=== PATIENT | female | born 1960 | race Caucasian/White ===

== ENCOUNTER 2023-12-30 12:37 | Emergency (ER) | payer OTHER ==
[~2023-12-30] VITALS: Ht 152.4 cm; Wt 57.7 kg
[2023-12-30] MEDS ORDERED: OMEPRAZOLE40 MG PO ×2 (12:52→14:55)
[2023-12-30] MEDS ORDERED: ZYRTEC10 M3 (12:52)
[2023-12-30] MEDS ORDERED: IOPAMIDOL 370 MG/ML 100 ML INFUS..BTL INJ ONE (13:23)
[2023-12-30] MEDS: DONNATAL/LIDOCAINE/MAALOX 30 ML SUSP PO ONE (13:29)
[2023-12-30] MEDS ORDERED: MAGNESIUM/ALUMINUM/SIMETHICONE 30 ML UDC ONE (13:32)
[2023-12-30] MEDS ORDERED: BELLADONNA ALK/PHENOBARBITAL 5 ML UDC ONE (13:32)
[2023-12-30] MEDS ORDERED: LIDOCAINE VISC 2% SOLN 15 ML UDC ONE (13:33)
[2023-12-30] MEDS ORDERED: FAMOTIDINE 20 MG/2 ML VIAL IV ONE (13:33)
[2023-12-30] MEDS: FAMOTIDINE 20 MG/2 ML VIAL IV STA (13:39)
[2023-12-30] MEDS: HYDROCODONE/APAP 5MG-325MG TAB PO ONE (14:02)
[2023-12-30] MEDS: ONDANSETRON HCL INJ 2MG/ML 2ML 2 MG/ML VIAL IV STA (14:02)
[2023-12-30] MEDS ORDERED: ONDANSETRON HCL INJ 2MG/ML 2ML 2 MG/ML VIAL ONE (14:04)
[2023-12-30] MEDS ORDERED: HYDROCODONE/APAP 5MG-325MG TAB ONE (14:05)
[2023-12-30 15:14] VITALS: O2SAT 97
== END 2023-12-30 15:14 | disposition home or self-care (01) ==
LOC: FSED 12:41
DX: R10.13 Epigastric pain (principal); K29.80 Duodenitis without bleeding; K21.9 Gastro-esophageal reflux disease without esophagitis; R94.31 Abnormal electrocardiogram [ECG] [EKG]; F17.210 Nicotine dependence, cigarettes, uncomplicated
CPT/HCPCS: 74177; 80053; 82553; 84484; 85025; 93005; 96374; 96375; 99284; J2405; Q9967

== ENCOUNTER 2024-02-17 22:31 | Inpatient (IN) | payer OTHER ==
[~2024-02-17] VITALS: Ht 152.4 cm; Wt 56.7 kg
[~2024-02-17 22:31] MED LIST: FLONASE ALLERG9.9 ML INH; LEVOTHYROXINE75 MCG PO; MULTI-VITAMIN1 EACH PO; OMEPRAZOLE40 MG PO; SERTRALINE HCL50 MG PO; ZYRTEC10 M3
[2024-02-17 22:39] VITALS: PULSE 76; RESP 18; TEMP 96.9
[2024-02-17] MEDS: SODIUM CHLORIDE 0.9% 1000ML 2,000 ML IV STA (22:49)
[2024-02-17 23:10] LABS: BASOPHILS % 0.3 % (0.0-1.0); EOSINOPHILS # (AUTO) 0.1 (0.0-0.4); EOSINOPHILS % 1.6 % (0.0-6.0); HEMATOCRIT 43.9 % (34.2-44.1); HEMOGLOBIN 14.6 g/dL (12.0-16.0); LYMPHOCYTES # (AUTO) 2.4 (1.0-3.2); MEAN CORPUSCULAR HEMOGLOBIN 31.3 pg (28-32); MEAN CORPUSCULAR HGB CONC 33.3 g/dL (31-35); MEAN CORPUSCULAR VOLUME 94.2 fL (81-99); MONOCYTES # (AUTO) 0.7 (0.2-0.8); MONOCYTES % 7.8 % (4.4-11.3); NEUTROPHILS # (AUTO) 5.3 (2.1-6.9); NEUTROPHILS % 61.3 % (38.7-80.0); PLATELET COUNT 242 x10e3/uL (140-360); RED BLOOD COUNT 4.66 x10e6/uL (3.6-5.1); RED CELL DISTRIBUTION WIDTH 12.1 % (11.7-14.4); WHITE BLOOD COUNT 8.58 x10e3/uL (4.8-10.8)
[2024-02-17 23:24] LABS: LIPASE 53 U/L (8-78)
[2024-02-17 23:25] LABS: ALANINE AMINOTRANSFERASE 10 IU/L (0-55); ALBUMIN 3.9 g/dL (3.5-5.0); ALBUMIN/GLOBULIN RATIO 1.1 (0.8-2.0); ALKALINE PHOSPHATASE 71 IU/L (40-150); ANION GAP 15.9 mmol/L (8-16); BILIRUBIN,TOTAL 0.3 mg/dL (0.2-1.2); BLOOD UREA NITROGEN 17 mg/dL (7-26); BUN/CREATININE RATIO 20 (6-25); CALCIUM 9.4 mg/dL (8.4-10.2); CARBON DIOXIDE 24 mmol/L (22-29); CHLORIDE 107 mmol/L (98-107); CREATINE KINASE 60 IU/L (29-168); CREATININE, SERUM 0.87 mg/dL (0.57-1.11); EST GLOMERULAR FILTRATION RATE 75 ML/MIN (>=60); GLUCOSE 87 mg/dL (74-118); POTASSIUM 3.9 mmol/L (3.5-5.1); SODIUM 143 mmol/L (136-145); TOTAL PROTEIN 7.6 g/dL (6.5-8.1)
[2024-02-17 23:35] LABS: TROPONIN I < 0.001 ng/mL (0-0.300)
[2024-02-17 23:36] LABS: ETHANOL < 10.0 mg/dL (0.0-10.0)
[2024-02-17] MEDS ORDERED: IOPAMIDOL 370 MG/ML 100 ML INFUS..BTL INJ ONE (23:52)
[2024-02-18] VITALS (9 sets, daily range): BP systolic 93–145; BP diastolic 58–85; PULSE 69–85; RESP 16–18; TEMP 97.5–98.1; O2SAT 95–100
[2024-02-18] MEDS ORDERED: ONDANSETRON HCL INJ 2MG/ML 2ML 2 MG/ML VIAL IV PRN (01:30)
[2024-02-18] MEDS: SODIUM CHLORIDE 0.9% 1000ML 1,000 ML IV SCH (02:54)
[2024-02-18 06:35] LABS: CREATINE KINASE 53 IU/L (29-168)
[2024-02-18 06:44] LABS: TROPONIN I < 0.001 ng/mL (0-0.300)
[2024-02-18] MEDS ORDERED: ALBUTEROL/IPRATROPIUM 3 ML NEB NEB PRN (10:45)
[2024-02-18] MEDS ORDERED: METOPROLOL TARTRATE INJ 1 MG/ML VIAL IV PRN (10:45)
[2024-02-18] MEDS ORDERED: MELATONIN 3 MG TAB PO PRN (10:45)
[2024-02-18] MEDS ORDERED: PROPOFOL IV EMULSION 10 MG/ML 20 ML VIAL ONE (11:56)
[2024-02-18] MEDS ORDERED: GLYCOPYRROLATE INJ 0.2 MG/ML VIAL ONE (11:56)
[2024-02-18] MEDS ORDERED: PROPOFOL IV EMULSION 10 MG/ML 50 ML VIAL IV ONE (11:56)
[2024-02-18] MEDS ORDERED: EPHEDRINE SULFATE INJ 50 MG/ML VIAL ONE (11:56)
[2024-02-18] MEDS ORDERED: LIDOCAINE HCL 2% LOCAL INJ 5 ML SDV VIAL INJ ONE (11:56)
[2024-02-18] MEDS ORDERED: ONDANSETRON HCL INJ 2MG/ML 2ML 2 MG/ML VIAL ONE (14:00)
[2024-02-18 14:58] LABS: CREATINE KINASE 144 IU/L (29-168)
[2024-02-18 15:05] LABS: TROPONIN I < 0.001 ng/mL (0-0.300)
[2024-02-18] MEDS: ENOXAPARIN SOD INJ 40 MG/0.4 ML SYR SC SCH (17:21)
[2024-02-19] VITALS (10 sets, daily range): BP systolic 99–127; BP diastolic 60–76; PULSE 68–91; RESP 16–18; TEMP 98.1–100.5; O2SAT 95–98
[2024-02-19] MEDS: ACETAMINOPHEN 325 MG TAB PO PRN (05:26)
[2024-02-19 05:58] LABS: BASOPHILS % 0.1 % (0.0-1.0); EOSINOPHILS % 0.2 % (0.0-6.0); HEMATOCRIT 34.1 % (34.2-44.1); HEMOGLOBIN 11.2 g/dL (12.0-16.0); LYMPHOCYTES # (AUTO) 1.1 (1.0-3.2); LYMPHOCYTES % 10.5 % (18.0-39.1); MEAN CORPUSCULAR HEMOGLOBIN 31.3 pg (28-32); MEAN CORPUSCULAR HGB CONC 32.8 g/dL (31-35); MEAN CORPUSCULAR VOLUME 95.3 fL (81-99); MONOCYTES # (AUTO) 0.6 (0.2-0.8); MONOCYTES % 6.1 % (4.4-11.3); NEUTROPHILS # (AUTO) 8.3 (2.1-6.9); NEUTROPHILS % 82.6 % (38.7-80.0); PLATELET COUNT 157 x10e3/uL (140-360); RED BLOOD COUNT 3.58 x10e6/uL (3.6-5.1); WHITE BLOOD COUNT 10.04 x10e3/uL (4.8-10.8)
[2024-02-19 06:23] LABS: ALBUMIN 2.7 g/dL (3.5-5.0); ALBUMIN/GLOBULIN RATIO 1.1 (0.8-2.0); ANION GAP 12.3 mmol/L (8-16); BILIRUBIN,TOTAL 0.4 mg/dL (0.2-1.2); CALCIUM 7.6 mg/dL (8.4-10.2); CREATININE, SERUM 0.83 mg/dL (0.57-1.11); TOTAL PROTEIN 5.2 g/dL (6.5-8.1)
[2024-02-19 06:25] LABS: POTASSIUM 3.3 mmol/L (3.5-5.1)
[2024-02-19 07:44] LABS: CLARITY,URINE CLEAR (CLEAR); COLOR,URINE YELLOW (YELLOW); GLUCOSE, URINE NEGATIVE (NEGATIVE); KETONES,URINE NEGATIVE (NEGATIVE); LEUKOCYTE ESTERASE ,URINE NEGATIVE (NEGATIVE); NITRITE,URINE NEGATIVE (NEGATIVE); PH,URINE 5.5 (5 - 7); PROTEIN,URINE DIPSTICK NEGATIVE (NEGATIVE)
[2024-02-19 07:45] LABS: AMPHETAMINES SCREEN,URINE POSITIVE (NEGATIVE); BENZODIAZEPINES SCREEN,URINE NEGATIVE (NEGATIVE); BILIRUBIN,URINE NEGATIVE (NEGATIVE); CANNABINOIDS SCREEN,URINE NEGATIVE (NEGATIVE); METHADONE SCREEN, URINE NEGATIVE (NEGATIVE); OPIATES SCREEN,URINE NEGATIVE (NEGATIVE); PHENCYCLIDINE SCREEN,URINE NEGATIVE (NEGATIVE); URINE UROBILINOGEN 0.2 mg/dL (0.2 - 1)
[2024-02-19 07:57] LABS: BACTERIA,URINE FEW /HPF; EPITHELIAL CELLS,URINE FEW /LPF; WBC,URINE (MAN) 0-5 /HPF (0-5)
[2024-02-19] MEDS ORDERED: PANTOPRAZOLE SOD 40 MG TABEC PO SCH (09:00)
[2024-02-19] MEDS: FLUTICASONE PROPIONATE NASAL SPRAY NS SCH (09:35)
[2024-02-19] MEDS: LEVOTHYROXINE SODIUM 75 MCG TAB PO SCH (09:35)
[2024-02-19] MEDS: SERTRALINE HCL 50 MG TAB PO SCH (09:35)
[2024-02-19] MEDS: ONDANSETRON HCL INJ 2MG/ML 2ML 2 MG/ML VIAL IV PRN (09:37)
[2024-02-19] MEDS: Morphine 4mg INJECTION 4 MG/ML INJ IV PRN (09:38)
[2024-02-19] MEDS: SIMETHICONE 80 MG CHEW PO PRN (09:51)
[2024-02-19] MEDS: POTASSIUM CHLORIDE 10MEQ EA PO STA (23:50)
[2024-02-20] VITALS: BP 106/57; PULSE 71; RESP 16; TEMP 98.2; O2SAT 95
[2024-02-20] MEDS: POTASSIUM CHLORIDE 10MEQ EA PO ONE (02:21)
[2024-02-20 04:00] VITALS: BP 119/82; PULSE 61; RESP 17; TEMP 97.6; O2SAT 96
[2024-02-20 06:21] LABS: ALBUMIN 2.6 g/dL (3.5-5.0); ALBUMIN/GLOBULIN RATIO 0.9 (0.8-2.0); ANION GAP 10.6 mmol/L (8-16); BILIRUBIN,TOTAL 0.3 mg/dL (0.2-1.2); CREATININE, SERUM 0.73 mg/dL (0.57-1.11); POTASSIUM 3.6 mmol/L (3.5-5.1); TOTAL PROTEIN 5.5 g/dL (6.5-8.1)
[2024-02-20 07:24] VITALS: PULSE 66; RESP 16; O2SAT 95
[2024-02-20 07:53] VITALS: BP 119/78; PULSE 69; RESP 18; TEMP 97.8; O2SAT 99
[2024-02-20 09:21] VITALS: BP 119/78; PULSE 69; RESP 18; TEMP 97.8; O2SAT 99
[2024-02-20 11:46] VITALS: BP 124/79; PULSE 62; RESP 18; TEMP 98; O2SAT 98
[2024-02-20] MEDS ORDERED: LEVOFLOXACIN250 MG PO (14:00)
[2024-02-20] MEDS ORDERED: ONDANSETRON HCL 4 MG ORAL DISINTEGRATING TAB PO PRN (15:45)
== END 2024-02-20 15:25 | disposition home or self-care (01) | DRG 392 ==
LOC: ER 22:34 → ERHOLD 02-18 01:00 → MED/SURG3 02-18 02:04 → OBSVTOIN 02-19 16:07
PROVIDERS: ADMIT Internal Medicine; ATTEND Internal Medicine
PROC: 0DB98ZX Excision of Duodenum, Via Natural or Artificial Opening Endoscopic, Diagnostic (ICD-10-PCS; principal; 2024-02-18)
PROC: 0DB78ZX Excision of Stomach, Pylorus, Via Natural or Artificial Opening Endoscopic, Diagnostic (ICD-10-PCS; 2024-02-18)
PROC: 0DBM8ZZ Excision of Descending Colon, Via Natural or Artificial Opening Endoscopic (ICD-10-PCS; 2024-02-18)
DX: K29.80 Duodenitis without bleeding (principal); K57.10 Diverticulosis of small intestine without perforation or abscess without bleeding; K44.9 Diaphragmatic hernia without obstruction or gangrene; K29.50 Unspecified chronic gastritis without bleeding; K21.9 Gastro-esophageal reflux disease without esophagitis; K63.5 Polyp of colon; K59.89 Other specified functional intestinal disorders; K58.9 Irritable bowel syndrome, unspecified; K57.30 Diverticulosis of large intestine without perforation or abscess without bleeding; K64.8 Other hemorrhoids; K76.0 Fatty (change of) liver, not elsewhere classified; R55 Syncope and collapse; R19.5 Other fecal abnormalities; F41.9 Anxiety disorder, unspecified; E03.9 Hypothyroidism, unspecified; F17.210 Nicotine dependence, cigarettes, uncomplicated; Z87.11 Personal history of peptic ulcer disease; Z11.52 Encounter for screening for COVID-19; Z71.3 Dietary counseling and surveillance; Z68.24 Body mass index [BMI] 24.0-24.9, adult; Z79.899 Other long term (current) drug therapy
CPT/HCPCS: 36415; 74177; 80053; 80307; 80320; 81001; 82550; 83690; 84484; 85025; 88305; 88313; 88342; 93005; 94799; 99284; G0378; J1650; J2001; J2270; J2405; J2470; J2543; J7030; Q9967; U0002

== ENCOUNTER 2024-04-15 20:07 | Emergency (ER) | payer OTHER ==
[~2024-04-15] VITALS: Ht 152.4 cm; Wt 59.0 kg
[~2024-04-15 20:07] MED LIST changes: +LEVOFLOXACIN250 MG PO
[2024-04-15 20:20] VITALS: PULSE 104; RESP 18; TEMP 98.7; O2SAT 96
[2024-04-15] MEDS ORDERED: AUGMENTIN 500-1 EACH PO (20:34)
[2024-04-15] MEDS ORDERED: ACETAMINOPHEN-1 EAC3 PO (20:36)
[2024-04-15] MEDS: AMOXICILLIN/CLAVULANATE K 875 MG TAB PO ONE (20:46)
== END 2024-04-15 20:45 | disposition home or self-care (01) ==
LOC: FSED 20:10
DX: K08.89 Other specified disorders of teeth and supporting structures (principal); R68.84 Jaw pain; E03.9 Hypothyroidism, unspecified; K21.9 Gastro-esophageal reflux disease without esophagitis; F41.9 Anxiety disorder, unspecified; F17.210 Nicotine dependence, cigarettes, uncomplicated; Z87.19 Personal history of other diseases of the digestive system
CPT/HCPCS: 99283

== ENCOUNTER 2024-06-12 17:58 | Emergency (ER) | payer SELFPAY ==
[~2024-06-12] VITALS: Ht 152.4 cm; Wt 61.2 kg
[~2024-06-12 17:58] MED LIST changes: +ACETAMINOPHEN-1 EAC3 PO; +AUGMENTIN 500-1 EACH PO
[2024-06-12 18:20] VITALS: TEMP 98
[2024-06-12] MEDS: METHYLPREDNISOLONE SOD SUCC 125 MG/2ML VIAL IV STA (18:42)
[2024-06-12 18:47] LABS: BASOPHILS % 0.4 % (0.0-1.0); EOSINOPHILS # (AUTO) 0.1 (0.0-0.4); EOSINOPHILS % 1.3 % (0.0-6.0); HEMATOCRIT 39.4 % (34.2-44.1); HEMOGLOBIN 12.8 g/dL (12.0-16.0); LYMPHOCYTES # (AUTO) 1.9 (1.0-3.2); LYMPHOCYTES % 26.4 % (18.0-39.1); MEAN CORPUSCULAR HEMOGLOBIN 31.3 pg (28-32); MEAN CORPUSCULAR HGB CONC 32.5 g/dL (31-35); MEAN CORPUSCULAR VOLUME 96.3 fL (81-99); MONOCYTES # (AUTO) 0.6 (0.2-0.8); NEUTROPHILS # (AUTO) 4.5 (2.1-6.9); NEUTROPHILS % 62.5 % (38.7-80.0); PLATELET COUNT 206 x10e3/uL (140-360); RED BLOOD COUNT 4.09 x10e6/uL (3.6-5.1); RED CELL DISTRIBUTION WIDTH 12.4 % (11.7-14.4); WHITE BLOOD COUNT 7.12 x10e3/uL (4.8-10.8)
[2024-06-12 19:04] LABS: ALBUMIN 3.7 g/dL (3.5-5.0); ALBUMIN/GLOBULIN RATIO 1.2 (0.8-2.0); ANION GAP 16.4 mmol/L (8-16); BILIRUBIN,TOTAL 0.4 mg/dL (0.2-1.2); CALCIUM 9.2 mg/dL (8.4-10.2); CREATININE, SERUM 0.81 mg/dL (0.57-1.11); TOTAL PROTEIN 6.7 g/dL (6.5-8.1)
[2024-06-12 19:07] LABS: POTASSIUM 3.4 mmol/L (3.5-5.1)
[2024-06-12] MEDS ORDERED: PREDNISONE20 MG PO (19:47)
[2024-06-12 19:48] VITALS: PULSE 85; RESP 16; O2SAT 100
== END 2024-06-12 19:49 | disposition home or self-care (01) ==
LOC: ER 18:05
DX: R21 Rash and other nonspecific skin eruption (principal); E03.9 Hypothyroidism, unspecified; K21.9 Gastro-esophageal reflux disease without esophagitis; F41.9 Anxiety disorder, unspecified; Z87.19 Personal history of other diseases of the digestive system
CPT/HCPCS: 36415; 80053; 83518; 85025; 87070; 99284; J2919